=== PATIENT | female | born 1985 | race Caucasian/White ===

== ENCOUNTER → 2017-03-31 | Day surgery (SDC) | payer BC ==
[2017-03-18 15:12] VITALS: Ht 167.6 cm; Wt 63.6 kg
[~2017-03-31] VITALS: Ht 167.6 cm; Wt 63.6 kg
[~2017-03-31] MED LIST: ATROPINE SULFATE 0.1 MG/ML 5ML SYR IV PRN; BCPILLS PO; BUPIVACAINE/EPINEPHRINE 0.25% 1:200,000 30 ML VIAL ONE; CEFAZOLIN 2000MG IV PUSH 15 ML IV SCH; DEXAMETHASONE SOD INJ 4 MG/ML VIAL IV PRN; DEXAMETHASONE SOD INJ 4 MG/ML VIAL ONE; EpHEDrine SULFATE INJ 50 MG/ML AMP IV PRN; EpINEphrine INJ 1MG/ML AMP 1 MG/ML AMP ONE; FENTANYL CITRATE INJ 50 MCG/1 ML 2 ML VIAL IV PRN; HYDR-5688 PO; KETO10TA PO; KETOROLAC TROMETHAMINE 30 MG/ML VIAL IV. PRN; LABETALOL HCL IV 5 MG/ML 20ML IV PRN; LACTATED RINGER'S 1000ML 1,000 ML IV SCH; LIDOCAINE HCL 1% MPF 2 ML VIAL ONE; LIDOCAINE HCL 2% 2 ML VIAL (20MG/ML) ONE; MAGN250T3 PO; METOCLOPRAMIDE HCL INJ 5 MG/ML 2 ML VIAL IV PRN; MIDAZOLAM HCL 1 MG/ML 2ML VIAL ONE; MoRPHine SULFATE 10 MG/ML CARP/VIAL IV PRN; OMEG10007 PO; ONDANSETRON INJ 2 MG/ML 2 ML VIAL IV PRN; ONDANSETRON INJ 2 MG/ML 2 ML VIAL ONE; OXYC-57 PO; OXYCODONE/ACETAMINOPHEN 5-325 TAB PO PRN; PEDICHW50 PO; PHENYLEPHRINE 100MCG/ML 5ML SYR IV PRN; PROPOFOL IV EMULSION 10 MG/ML 20 ML VIAL IV ONE; ROPIVACAINE 0.5% 5 MG/ML 30 ML VIAL ONE; SCOPOLAMINE 1.5 MG TDSY TD ONE; SODIUM CHLORIDE 0.9% 1000ML 1,000 ML IV SCH
--- NOTE | 2017-03-31 10:16 | History & Physical Bridge - [place] ---
H&P Re-Evaluation Bridge Note: I have examined the patient, reviewed the History & Physical and in the interval since the performance of the History & Physical I have noted the following changes of clinical significance: No changes noted
--- NOTE | 2017-03-31 11:21 | [facility] Post Operative Brief Note ---
Immediate Operative Summary Operative Date Mar 31, 2017. Pre-Operative Diagnosis Left Shoulder biceps tendinitis, pain Post-Operative Diagnosis Left shoulder external impingement Procedure(s) Performed Left Shoulder Arthroscopy, Acromioplasty and debridement Surgeon Dr. Duran Supervisor Grower Surgeon(s) MICHELE Shukla Estimated Blood Loss 5ml Findings Consistent with Post-Op Diagnosis Specimens none Drains None Anesthesia Type General Regional Complication(s) none Disposition Disposition: Recovery Room / PACU
--- NOTE | 2017-03-31 11:33 | Discharge Instructions-SurgCtr ---
Discharge Instructions Date of Service Mar 31, 2017. Visit Reason for Visit: Left Shoulder Biceps Tendinitis, Pain Discharge Discharge Diagnosis / Problem: SAME ABOVE Discharge Goals Goal(s): Decrease discomfort, Improve function Activity Recommendations Activity Limitations: as noted below Lifting Limitations: gradually increase as tolerated Exercise/Sports Limitations: gradually increase as tolerated Shower/Bathe: tomorrow Driving or Machine Use: resume 1 day after discharge Anesthesia . Post Anesthesia Instructions: If you have had General Anesthesia or IV Sedation: * Do not drive today. * Resume driving when surgeon permits. * Do not make important decisions or sign legal documents today. * Call surgeon for: 1. Temperature elevations greater than 101 degrees F. 2. Uncontrollable pain. 3. Excessive bleeding. 4. Persistent nausea and vomiting. 5. Medication intolerance (nausea, vomiting or rash). * For nausea and vomiting use only clear liquids such as: tea, soda, bouillon until nausea subsides, then gradually increase diet as tolerated. * If you have any concerns or questions, call your surgeon's office. If physician is unavailable and it is an emergency, call 911 or go to the nearest emergency room. . Instructions / Follow-Up Instructions / Follow-Up MEDICATIONS: * Resume previous medications unless instructed otherwise by your surgeon. * Always take pain medication on a full stomach or with food to avoid upset stomach. * Do not drink alcohol or drive while taking narcotics. * Ibuprofen or Tylenol may be taken if narcotic not needed. SPECIAL CARE INSTRUCTIONS: __ None _X_ Keep extremity elevated and iced x 48 hours; apply ice 20-30 minutes 8-10 times/day. May remove at night. _X_ Sling (WEAR NEEDED FOR COMFORT) __24 hrs/day __ Remove at night __ Shoulder Immobilizer __ 24 hrs/day __ Remove at night _X_ Dressing __ Maintain until seen in office, may shower with plastic over site _X_ Remove dressings in 24-48 hours and then may shower _X_ Cover incisions with band-aids after showering __ Do not remove steri-strips Call physician if chills or temperature rises above 102 degrees or pain unrelieved by prescribed pain medications at . . Diet Recommendations Home Diet: no limitations Fluid Restriction: None Procedures Procedures Performed: Left Shoulder Arthroscopy, Acromioplasty and debridement Pending Studies Studies pending at discharge: no Work Instructions Return To Work: after follow-up (OR WHEN PAIN IS TOLERABLE ) Lifting Limitations: none Medical Emergencies . Who to Call and When: Medical Emergencies: If at any time you feel your situation is an emergency, please call 911 immediately. . Non-Emergent Contact Non-Emergency issues call your: Primary Care Provider Call Non-Emergent contact if: you have a fever, temperature is above 101.5 . . "Provider Documentation" section prepared by Jose Rodriguez. .
--- NOTE | 2017-03-31 11:42 | OPERATIVE REPORT ---
DATE OF OPERATION: 03/31/2017 PREOPERATIVE DIAGNOSIS: External impingement of the left shoulder with possible biceps tendonitis. POSTOPERATIVE DIAGNOSIS: Severe external impingement of the left shoulder. PROCEDURE: Left shoulder diagnostic arthroscopy with limited debridement and acromioplasty. SURGEON: Jeffry Duran DO. DOOR AND ARRIVAL ATTENDANT: Frantz Rodriguez PA-C, whose assistance was necessary for positioning the arm and helping with instrumentation. ANESTHESIA: General with left interscalene nerve block. COMPLICATIONS: None. CONDITION: Stable to PACU. 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 She has been having a year long history of left shoulder pain. MRI was essentially negative. She failed a year of conservative treatment including physical therapy, multiple injections. She elected to proceed with arthroscopy. DESCRIPTION OF PROCEDURE: On 03/31/2017, she arrived at [facility] for the above procedure. She was seen in the preoperative holding area and the operative extremity was identified and signed. She was given a preoperative antibiotic and a left interscalene nerve block. She was taken back to the operating room, laid on the table in supine position and given general anesthesia. She was then put into the beachchair position. The left shoulder was prepped and draped in sterile fashion. Time-out was done and the patient and operative extremity was properly identified. A scope was introduced in the posterior portal. Diagnostic arthroscopy showed no cartilage damage to the humeral head or the glenoid. There was some minimal fraying of the anterior labrum. The biceps tendon was intact with a normal size biceps kika mechanism. The supraspinatus, infraspinatus, teres minor and subscapularis all checked and intact. An anterior portal was made. A shaver was used to do a limited debridement of the anterior labrum. The biceps tendon was pulled into the joint and there was no redness and no evidence of pathology. A shaver was used to remove a little bit of the superior capsule that seemed to be scarred into the dorsal aspect of the biceps tendon. There was no SLAP lesions and the labrum was completely intact. The scope was then put into the subacromial space. A lateral portal was made. There was significant red bursitis. A shaver was used to do a complete subacromial and subdeltoid bursectomy. Significant time was spent ensuring that all the inflamed bursa was excised. The bursal side of the rotator cuff was examined extensively without evidence of tear. An ablator was then used to tease the coracoacromial ligament off the undersurface of the acromion and a 5-0 suha was used to complete an acromioplasty of a Bigliani type 2 acromion. A shaver was used to remove any excess debris. Final diagnostic arthroscopy showed no additional pathology. Arthroscopic instructions were removed from the shoulder. Portal sites were closed with 3-0 nylon. She was then placed in a soft dressing and a regular arm sling. She was then extubated, transferred to a [facility] and taken to the postanesthesia care unit in stable condition. She tolerated the procedure well. I attest to the content of the Intraoperative Record and any orders documented therein. Any exception s are noted below.
--- NOTE | 2017-03-31 11:56 | Anesthesia Progress Nt - [facility] ---
Anesthesia Post Op Note Date & Time Mar 31, 2017 at 11:56 Vital Signs Pain Intensity: 0 Vital Signs Past 12 Hours Date Time Temp Pulse Resp B/P (MAP) Pulse Ox O2 Delivery O2 Flow Rate FiO2 03/31/17 11:54 80 21 03/31/17 11:54 78 21 99 03/31/17 11:52 134/70 03/31/17 11:52 36.8 99 Room Air 03/31/17 11:49 83 18 99 03/31/17 11:49 82 18 03/31/17 11:44 84 25 03/31/17 11:44 86 25 100 03/31/17 11:43 84 17 100 03/31/17 11:43 86 17 03/31/17 11:42 132/92 03/31/17 11:38 91 19 93 03/31/17 11:38 94 19 03/31/17 11:36 126/85 03/31/17 11:33 84 18 03/31/17 11:33 81 18 100 03/31/17 11:31 118/80 03/31/17 11:30 36.3 94 16 118/80 100 Mask 7 03/31/17 10:33 0 03/31/17 10:32 0 03/31/17 10:27 92 19 100 03/31/17 10:27 90 03/31/17 10:26 135/119 03/31/17 10:22 101 03/31/17 10:22 101 17 100 03/31/17 10:20 104 30 143/93 (110) 100 Mask 6 03/31/17 10:20 139/96 03/31/17 10:19 143/93 03/31/17 10:17 89 0 03/31/17 10:12 97 0 03/31/17 10:07 94 0 03/31/17 10:02 108 0 03/31/17 09:57 87 0 03/31/17 09:52 91 0 03/31/17 09:47 94 0 03/31/17 09:17 36.5 93 20 118/82 (94) 99 Room Air Notes Mental Status: alert / awake / arousable, participated in evaluation Pt Amnestic to Procedure: Yes Nausea / Vomiting: adequately controlled Pain: adequately controlled Airway Patency, RR, SpO2: stable & adequate BP & HR: stable & adequate Hydration State: stable & adequate Anesthetic Complications: no major complications apparent
[2017-03-31 12:04] VITALS: TEMP 36.8
[2017-03-31 12:43] VITALS: BP 109/72; PULSE 80; O2SAT 99
== END | disposition home or self-care (01) ==
LOC: X.SURG 08:54
PROVIDERS: ATTEND Orthopaedic Surgery
DX: M75.42 Impingement syndrome of left shoulder (principal); G62.9 Polyneuropathy, unspecified; M26.629 Arthralgia of temporomandibular joint, unspecified side; Z80.3 Family history of malignant neoplasm of breast